=== PATIENT | male | born 1980 | race Caucasian/White ===

== ENCOUNTER 2020-09-25 11:44 | Outpatient (REF) | payer OTHER, SELFPAY | END 2020-09-25 11:45 | disposition home or self-care (01) | LOC: HO.LAB 11:44 | PROVIDERS: Visit Provider Internal Medicine | DX: Z20.828 Contact with and (suspected) exposure to other viral communicable diseases (principal) | CPT/HCPCS: C9803; U0003 ==

== ENCOUNTER 2021-06-16 08:41 | Outpatient (REF) | payer OTHER, SELFPAY ==
[2021-06-16 11:43] LABS: Hematocrit 46.4 % (42-52); Hemoglobin 15.2 g/dl (14.0-18.0); Mean Corpuscular HGB Conc 32.8 g/dl (31.0-36.0); Mean Corpuscular Hemoglobin 28.2 pg (27.0-33.0); Mean Corpuscular Volume 86.1 fL (80-98); Mean Platelet Volume 10.9 fL (9.4-12.4); Platelet Count 262 X10*3/uL (160-400); Red Blood Count 5.39 X10*6/uL (4.60-5.80); Red Cell Distribution Width 13.1 % (11.0-16.0); White Blood Count 7.3 X10*3/uL (4.8-10.8)
[2021-06-16 12:22] LABS: Alanine Aminotransferase 28 U/L (0-40); Albumin Level 4.3 g/dL (3.5-5.0); Alkaline Phosphatase 56 U/L (39-117); Anion Gap 12 (12-20); Aspartate Amino Transferase 19 U/L (5-37); Bilirubin Total 0.3 mg/dL (0.0-1.0); Blood Urea Nitrogen 10 mg/dL (9-16); Calcium 9.3 mg/dL (8.4-10.2); Carbon Dioxide 25 mmol/L (22-29); Chloride 107 mmol/L (96-108); Estimated Glomerular Filt Rate > 60; Glucose Random 95 mg/dL (60-115); Potassium 4.8 mmol/L (3.3-5.1); Sodium 139 mmol/L (135-145); Total Protein 7.5 g/dL (6.5-8.0)
[2021-06-16 13:56] LABS: Band Neutrophils Percent 7 % (3-5); Basophils Abs Manual 0.1 X10*3/uL (0.0-0.3); Basophils Percent Manual 2 % (0-1); Eosinophils Absolute Manual 0.2 X10*3/UL (0.0-0.8); Eosinophils Percent Manual 3 % (0-4); Lymphocytes Absolute Manual 0.9 X10*3/uL (0.6-4.8); Lymphocytes Percent Manual 12 % (20-40); Monocytes Absolute Manual 0.8 X10*3/uL (0.0-1.2); Monocytes Percent Manual 11 % (2-11); Neutrophils Absolute Manual 5.3 X10*3/uL (2.2-7.9); Neutrophils Percent Manual 65 % (45-73)
[2021-06-16 13:57] LABS: Platelet Estimate NORMAL (NORMAL); Platelet Morphology Comment NORMAL; RBC Morphology NORMAL
[2021-06-19 21:26] LABS: TS Negative Control Passed; TS Panel A 0; TS Panel B 0; TS Positive Control Passed; TSpotTB Negative (SeeBelow)
== END 2021-06-16 08:42 | disposition home or self-care (01) ==
LOC: HO.HMGCLDS 08:41
PROVIDERS: PCP Physician Assistant; Visit Provider Physician Assistant Medical
DX: L40.0 Psoriasis vulgaris (principal); Z79.899 Other long term (current) drug therapy
CPT/HCPCS: 36415; 80053; 85007; 85027; 86481

== ENCOUNTER 2021-12-17 09:13 | Outpatient (REF) | payer OTHER, SELFPAY ==
[2021-12-17 11:49] LABS: Hematocrit 50.2 % (42.0-52.0); Hemoglobin 15.8 g/dl (14.0-18.0); Mean Corpuscular HGB Conc 31.5 g/dl (31.0-36.0); Mean Corpuscular Hemoglobin 27.8 pg (27.0-33.0); Mean Corpuscular Volume 88.2 fL (80.0-98.0); Mean Platelet Volume 11.6 fL (9.4-12.4); Platelet Count 307 X10*3/uL (160-400); Red Blood Count 5.69 X10*6/uL (4.60-5.80); White Blood Count 9.7 X10*3/uL (4.8-10.8)
[2021-12-17 12:13] LABS: Alanine Aminotransferase 24 U/L (0-40); Albumin Level 4.3 g/dL (3.5-5.0); Alkaline Phosphatase 53 U/L (39-117); Anion Gap 12 (12-20); Aspartate Amino Transferase 17 U/L (5-37); Bilirubin Total 0.7 mg/dL (0.0-1.0); Blood Urea Nitrogen 13 mg/dL (9-16); Calcium 9.5 mg/dL (8.4-10.2); Carbon Dioxide 27 mmol/L (22-29); Chloride 106 mmol/L (96-108); Estimated Glomerular Filt Rate > 60; Glucose Random 97 mg/dL (60-115); Potassium 4.8 mmol/L (3.3-5.1); Sodium 140 mmol/L (135-145); Total Protein 7.3 g/dL (6.5-8.0)
[2021-12-17 14:10] LABS: Band Neutrophils Percent 2 % (3-5); Eosinophils Absolute Manual 0.1 X10*3/uL (0.0-0.4); Eosinophils Percent Manual 1 % (0-4); Lymphocytes Absolute Manual 1.3 X10*3/uL (1.2-4.9); Lymphocytes Percent Manual 13 % (20-40); Monocytes Absolute Manual 0.8 X10*3/uL (0.1-1.2); Monocytes Percent Manual 8 % (2-11); Neutrophils Absolute Manual 7.6 X10*3/uL (2.0-8.3); Neutrophils Percent Manual 76 % (45-73)
[2021-12-17 14:11] LABS: Platelet Estimate NORMAL (NORMAL); Platelet Morphology Comment NORMAL; RBC Morphology NORMAL
[2021-12-19 12:37] LABS: TS Negative Control Passed; TS Panel A 0; TS Panel B 0; TS Positive Control Passed; TSpotTB Negative (Negative)
== END 2021-12-17 09:14 | disposition home or self-care (01) ==
LOC: HO.HMGCLDS 09:13
PROVIDERS: Visit Provider Physician Assistant Medical
DX: Z11.1 Encounter for screening for respiratory tuberculosis (principal); L40.0 Psoriasis vulgaris; Z79.899 Other long term (current) drug therapy
CPT/HCPCS: 36415; 80053; 85007; 85027; 86481

== ENCOUNTER 2022-12-30 10:31 | Outpatient (REF) | payer OTHER, SELFPAY ==
--- NOTE | ~2022-12-30 | XR_ITS ---
EXAMINATION: XR CERVICAL SPINE XR LUMBAR SPINE XR SHOULDER, RIGHT CLINICAL INFORMATION: Radiculopathy cervical and lumbar regions. Right shoulder pain. COMPARISON: None available. TECHNIQUE: Three-view cervical spine. Three-view lumbar sacral spine. 4 view right shoulder. FINDINGS: CERVICAL SPINE: 3 views of the cervical spine do not demonstrate any evidence of acute fracture. No abnormal prevertebral soft tissue swelling is seen. There is mild narrowing of the C6-C7 disc space. No destructive bony lesions are appreciated. There is minimal spurring at multiple levels. LUMBAR SPINE: 3 views of the lumbar spine demonstrate 5 nonrib-bearing lumbar vertebrae. The bony texture and alignment is satisfactory. No acute fracture, spondylolisthesis, or spondylolysis is appreciated. There is mild narrowing of the L5-S1 disc space. There is some mildly increased density seen about the L5-S1 facet joints which may relate to some degree of facet arthropathy. Pedicles intact. Sacroiliac joints appear unremarkable. RIGHT SHOULDER: Views of the right shoulder do not demonstrate any evidence of acute fracture or dislocation. The glenohumeral joint appears unremarkable. No significant abnormality of the acromioclavicular joint is seen. No widening of the coracoclavicular space is seen. There is calcific tendinitis present. XR/XR shoulder RT min 2V IMPRESSION: Mild degenerative change of the cervical spine. Mild degenerative change, L5-S1 level. Calcific tendinitis of the right shoulder.
--- NOTE | ~2022-12-30 | XR_ITS ---
EXAMINATION: XR CERVICAL SPINE XR LUMBAR SPINE XR SHOULDER, RIGHT CLINICAL INFORMATION: Radiculopathy cervical and lumbar regions. Right shoulder pain. COMPARISON: None available. TECHNIQUE: Three-view cervical spine. Three-view lumbar sacral spine. 4 view right shoulder. FINDINGS: CERVICAL SPINE: 3 views of the cervical spine do not demonstrate any evidence of acute fracture. No abnormal prevertebral soft tissue swelling is seen. There is mild narrowing of the C6-C7 disc space. No destructive bony lesions are appreciated. There is minimal spurring at multiple levels. LUMBAR SPINE: 3 views of the lumbar spine demonstrate 5 nonrib-bearing lumbar vertebrae. The bony texture and alignment is satisfactory. No acute fracture, spondylolisthesis, or spondylolysis is appreciated. There is mild narrowing of the L5-S1 disc space. There is some mildly increased density seen about the L5-S1 facet joints which may relate to some degree of facet arthropathy. Pedicles intact. Sacroiliac joints appear unremarkable. RIGHT SHOULDER: Views of the right shoulder do not demonstrate any evidence of acute fracture or dislocation. The glenohumeral joint appears unremarkable. No significant abnormality of the acromioclavicular joint is seen. No widening of the coracoclavicular space is seen. There is calcific tendinitis present. XR/XR lumbar spine 2-3V IMPRESSION: Mild degenerative change of the cervical spine. Mild degenerative change, L5-S1 level. Calcific tendinitis of the right shoulder.
--- NOTE | ~2022-12-30 | XR_ITS ---
EXAMINATION: XR CERVICAL SPINE XR LUMBAR SPINE XR SHOULDER, RIGHT CLINICAL INFORMATION: Radiculopathy cervical and lumbar regions. Right shoulder pain. COMPARISON: None available. TECHNIQUE: Three-view cervical spine. Three-view lumbar sacral spine. 4 view right shoulder. FINDINGS: CERVICAL SPINE: 3 views of the cervical spine do not demonstrate any evidence of acute fracture. No abnormal prevertebral soft tissue swelling is seen. There is mild narrowing of the C6-C7 disc space. No destructive bony lesions are appreciated. There is minimal spurring at multiple levels. LUMBAR SPINE: 3 views of the lumbar spine demonstrate 5 nonrib-bearing lumbar vertebrae. The bony texture and alignment is satisfactory. No acute fracture, spondylolisthesis, or spondylolysis is appreciated. There is mild narrowing of the L5-S1 disc space. There is some mildly increased density seen about the L5-S1 facet joints which may relate to some degree of facet arthropathy. Pedicles intact. Sacroiliac joints appear unremarkable. RIGHT SHOULDER: Views of the right shoulder do not demonstrate any evidence of acute fracture or dislocation. The glenohumeral joint appears unremarkable. No significant abnormality of the acromioclavicular joint is seen. No widening of the coracoclavicular space is seen. There is calcific tendinitis present. XR/XR cervical spine 3V IMPRESSION: Mild degenerative change of the cervical spine. Mild degenerative change, L5-S1 level. Calcific tendinitis of the right shoulder.
== END 2022-12-30 10:32 | disposition home or self-care (01) ==
LOC: HO.LAB 10:31
PROVIDERS: PCP Physician Assistant; Visit Provider Physician Assistant
DX: M54.12 Radiculopathy, cervical region (principal); M54.16 Radiculopathy, lumbar region; M25.511 Pain in right shoulder
CPT/HCPCS: 72040; 72100; 73030

== ENCOUNTER 2023-01-19 06:59 | Outpatient (REF) | payer OTHER, SELFPAY ==
[2023-01-19 11:41] LABS: Hematocrit 48.7 % (42.0-52.0); Hemoglobin 15.7 g/dl (14.0-18.0); Mean Corpuscular HGB Conc 32.2 g/dl (31.0-36.0); Mean Corpuscular Hemoglobin 27.8 pg (27.0-33.0); Mean Corpuscular Volume 86.3 fL (80.0-98.0); Mean Platelet Volume 11.6 fL (9.4-12.4); Platelet Count 262 X10*3/uL (160-400); Red Blood Count 5.64 X10*6/uL (4.60-5.80); Red Cell Distribution Width 13.4 % (11.0-16.0); White Blood Count 8.4 X10*3/uL (4.8-10.8)
[2023-01-19 12:24] LABS: Alanine Aminotransferase 30 U/L (0-40); Albumin Level 4.1 g/dL (3.5-5.0); Alkaline Phosphatase 61 U/L (39-117); Anion Gap 12 (12-20); Aspartate Amino Transferase 16 U/L (5-37); Bilirubin Total 0.4 mg/dL (0.0-1.0); Blood Urea Nitrogen 7 mg/dL (9-16); Calcium 9.1 mg/dL (8.4-10.2); Carbon Dioxide 25 mmol/L (22-29); Chloride 109 mmol/L (96-108); Cholesterol 238 mg/dL; Estimated Glomerular Filt Rate > 60; Glucose Fasting 104 mg/dL (60-99); HDL Cholesterol 40 mg/dL; LDL Cholesterol Calculated 147 mg/dl; Potassium 4.6 mmol/L (3.3-5.1); Sodium 141 mmol/L (135-145); Total Protein 6.9 g/dL (6.5-8.0); Triglycerides 255 mg/dL
[2023-01-19 12:33] LABS: TSH reflex Free T4 4.21 uIU/mL (0.32-4.0)
[2023-01-19 13:13] LABS: Free T4 (Free Thyroxine) 0.77 ng/dL (0.71-1.85)
[2023-01-21 23:29] LABS: TS Negative Control Passed; TS Panel A 0; TS Panel B 1; TS Positive Control Passed; TSpotTB Negative (Negative)
== END 2023-01-19 07:00 | disposition home or self-care (01) ==
LOC: HO.HMGCLDS 06:59
PROVIDERS: PCP Physician Assistant; Visit Provider Physician Assistant Medical
DX: Z13.1 Encounter for screening for diabetes mellitus (principal); Z13.220 Encounter for screening for lipoid disorders; Z13.29 Encounter for screening for other suspected endocrine disorder; L40.0 Psoriasis vulgaris; Z79.899 Other long term (current) drug therapy
CPT/HCPCS: 36415; 80053; 80061; 84439; 84443; 85027; 86481

== ENCOUNTER 2023-01-20 09:00 | Outpatient (RCR) | payer OTHER, SELFPAY ==
--- NOTE | 2023-01-12 09:46 | MHC.PT.EP ---
[facility] [place] Office [place] [facility] [place] [facility] [address] [phone] F: [phone] F: [phone] F: [phone] F: [phone] Physical Therapy Plan of Care Date of Evaluation: Date of Surgery: Diagnosis: cervical radiculopathy Assessment: Patient is a 42 year old R handed male who presents with s/s consistent with cervical pain, radiculopathy. 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 Patient past medical history is fairly unremarkable. Current impairments include pain, posture, ROM, strength, posture, activity tolerance and functional mobility. Functional limitations include decreased ability to lift, carry, sleep, push, pull and perform activities overhead. Patient is motivated with good rehab potential. Skilled PT will address impairments and functional limitations in order to achieve goals. 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 Manual therapy to restore motion and function. Therapeutic exercise to improve strength and flexibility. Neuromuscular re-education for posture and balance. Therapeutic activities to return to functional activities of daily living. Electronically signed by: Anjum Lan, PT Please sign and return to therapist. Thank you for your referral.
--- NOTE | 2023-03-22 07:40 | MHC.PT.DC ---
[facility] [place] Office [place] Office [place] Office [address] [phone] F: [phone] F: [phone] F: [phone] F: [phone] Physical Therapy Discharge Report Diagnosis: cervical radiculopathy Date of Surgery: Date of Evaluation: 01/12/23 Date of Discharge: 01/26/23 Treatments to Date: 2 Cancellations to Date: No Shows to Date: Discharge Status: Independent with HEP Patient Elected to Stop Discharge Summary: 01/20/23: pt very receptive to work/posture modifications. follows commands and cues well. added scap strength and he is to implement this into HEP and return on 2 weeks. Patient is a 42 year old R handed male who presents with s/s consistent with cervical pain, radiculopathy. 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 Patient past medical history is fairly unremarkable. Current impairments include pain, posture, ROM, strength, posture, activity tolerance and functional mobility. Functional limitations include decreased ability to lift, carry, sleep, push, pull and perform activities overhead. Patient is motivated with good rehab potential. Skilled PT will address impairments and functional limitations in order to achieve goals. Electronically signed by: Anjum Lan, PT Please sign and return to therapist. Thank you for your referral.
== END 2023-03-22 07:41 | disposition home or self-care (01) ==
LOC: HO.PTCHIC 09:00
PROVIDERS: PCP Physician Assistant; Visit Provider Physician Assistant
DX: M54.12 Radiculopathy, cervical region (principal)
CPT/HCPCS: 97110; 97140; 97161

== ENCOUNTER 2023-09-22 08:51 | Outpatient (AMB) | payer OTHER, SELFPAY ==
[2023-09-22 09:10] VITALS: BP 114/78; PULSE 70; RESP 16; BMI 22.8
--- NOTE | 2023-09-22 09:10 | A.OFFPC_ITS ---
Vital Signs 3 09/22/23 09:10 Height 5 ft 7 in Weight 145 lb 8 oz BMI 22.8 BP 114/78 Blood Pressure Location Lt brachial Position Sitting Respiration 16 Pulse 70 Pulse Source Palpation Intake Visit Reasons: PHYSICAL Intake Note: Patient is here today for a physical. 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 Accompanied by: Self / Same As Patient Allergies No Known Allergies Allergy (Verified 09/22/23 09:41) Medication List - Last Reconciled 09/22/23 by Surendra Chirinos PA-C levothyroxine 25 mcg PO DAILY secukinumab mg subcut Q4W Tobacco use date assessed: 12/30/22 Dental Screening Dental Screen Date: 09/22/23 Did you have a dental visit in the last 12 months?: Yes Did you have a dental problem in the last 6 months where you did not have access to dental care?: No Was dental information given to patient?: Patient has dentist HPI PHYSICAL 2 HPI0 Details Valdez is a 43-year-old male here today for an annual physical.? Patient has a past medical history of vitamin-D deficiency, history of alcohol use disorder, GERD, psoriasis. .. concerns--> has a right foot callus and having pain and would like evaluation removal callus. .. Hypothyroidism: Patient continues on levothyroxine 25 mcg. TSH is have been stable. .. History of Polysubstance use disorder: Had a history of alcohol use disorder was sober for 10 years. Still now drinks alcohol from time to time. He does admit to having opiate dependency recently and was able to wean himself off and now is 30 days sober from oral opiates. ? .. ? Psoriasis : Is on Injection therapy with a deratologist and feels it is working really well. ? .. ? GERD: . He reports his GI symptoms have returned, he is interested in restarting PPI therapy as as needed basis per .. ? Vaccine: Declines Flu, up-to-date with COVID vaccine, UTD with Tdap PFSH Medical History (Updated 09/22/23 @ 10:02 by Surendra Chirinos PA-C) Cervical radiculitis Surgical History No pertinent past surgical history Family History Father Diabetes Heart attack Substance use disorder Mother Hypertension Son Allergies Social History (Updated 09/22/23 @ 09:45 by Surendra Chirinos PA-C) Housing: House Alcohol intake: current Alcohol intake frequency: a few times a month Alcohol type: beer and hard liquor Patient Tobacco Use Status: Never used Tobacco e-Cigarette/Vaping Use: Never Used Second Hand Smoke Exposure: No service: No Current occupational status: employed Current occupation: [employer] Current occupational exposures/hazards: No Cognitive needs: No Hearing needs: No Vision needs: No Questionnaire Thrive Questionnaire Date Thrive assessed: 12/30/22 FELICIA-7 AMB Questionnaire FELICIA-7 Date FELICIA - 7 assessed: 12/30/22 Source: Developed by Drs. Nitish Sanches, Shira Cardenas, Alvin Cavazos and colleagues, with an educational wilfredo from [employer]. Review of Systems Const Denies body aches, Denies chills, Denies excessive sweating, Denies fatigue, Denies fever(s) and Denies headache(s) Eyes Denies blurry vision ENT Denies dysphagia, Denies vertigo, Denies dizziness, Denies headache(s), Denies hearing loss and Denies tinnitus Card Denies chest pain, Denies chest pain with activity, Denies syncope, Denies irregular heart rhythm and Denies dyspnea Resp Denies chest congestion, Denies cough, Denies hemoptysis, Denies dyspnea and Denies wheezing GI Denies abdominal pain, Denies melena, Denies hematochezia, Denies coffee ground emesis, Denies dysphagia, Denies diarrhea, Denies nausea and Denies vomiting Denies difficulty urinating, Denies dysuria, Denies urinary frequency, Denies urinary hesitancy and Denies urinary urgency Musc Denies arthralgias, Denies limited range of motion, Denies muscle cramps and Denies muscle weakness Skin/Breast Denies rash and Denies skin ulcer Neuro Denies Abnormal speech present, Denies confusion, Denies vertigo, Denies dizziness, Denies syncope, Denies headache(s), Denies memory loss and Denies seizure-like activity Psych Denies anxiety, Denies confusion, Denies depression, Denies memory loss, Denies panic attacks and Denies paranoia Endo Denies excessive sweating, Denies fatigue, Denies flushing, Denies polydipsia and Denies polyuria Aller/Immun Denies wheezing Physical exam (Primary Care) Vital Signs: Last Vital Signs Pulse 70 09/22/23 09:10 Resp 16 09/22/23 09:10 BP 114/78 09/22/23 09:10 BMI result Body Mass Index 22.8 Tobacco/Smoking Status: Tobacco use Status Tobacco use date assessed 12/30/22 09/22/23 09:14 Patient Tobacco Use Status Never used Tobacco 09/22/23 09:14 e-Cigarette/Vaping Use Never Used 09/22/23 09:14 Thrive Assessment: Date of Thrive Assessment Date Thrive assessed 12/30/22 09/22/23 09:14 Const General: cooperative, comfortable, no acute distress, alert and awake; No confusion Orientation/consciousness: oriented to person, oriented to place, patient oriented x3 and No confusion HENMT Head: Yes normocephalic Ears: external ears normal and TM's normal bilaterally Face and sinus: No sinus tenderness Mouth: Normal oral and palatal mucosa present and tongue normal Teeth and gingiva: dentition normal and gingiva normal Throat: Yes posterior oropharynx normal, Yes tonsils normal and Yes uvula midline Eyes Conjunctivae: conjunctivae normal Sclerae: sclerae normal Pupils: Equal, round and reactive pupils present EOM: EOMs intact bilaterally Direct Ophthalmoscopy: No no photophobia Neck Neck: Yes no lymphadenopathy, No tender and Yes no JVD Thyroid: Thyroid normal Carotids: no bruits Chest Chest palpation & inspection: no tenderness Resp Effort & Inspection: normal respiratory effort, no audible wheezes, not labored and no stridor Auscultation: no crackles, no rales, no rhonchi and no wheezes Cardio Jugular venous distension: no JVD Rate: regular rate, not bradycardic and not tachycardic Rhythm: regular rhythm Bruits: no carotid bruits Peripheral pulses: Peripheral pulses 2+ throughout GI Inspection: Yes normal to inspection, No abdominal wall ecchymosis and No visible herniation Palpation (GI): Soft to palpation, nontender, no guarding, not rigid and No hepatosplenomegaly present Auscultation: normoactive bowel sounds General: Yes no CVA tenderness Back/Spine/Pelvis Back: no CVA tenderness and No back tenderness Cervical Spine: cervical ROM normal Thoracic/Lumbar Spine: thoracic and lumbar spine normal to inspection, straight leg raise negative bilaterally, No thoraco-lumbar ROM limited and No lumbar spinal tenderness Skin Lesions: no lesions Rashes: no rashes Wounds: no wounds Neuro General: oriented to person, oriented to place, patient oriented x3, CN's II-XI intact bilaterally and No confusion Cranial nerves: Yes Equal, round and reactive pupils present and Yes Normal accommodation reflex present Cognition (Neuro): normal cognition Speech: No Abnormal speech present Gait exam (Neuro): Normal gait present Motor exam (neuro): 5/5 motor strength present throughout Extrem Right upper extremity: full ROM; no cyanosis Left upper extremity: full ROM; no cyanosis Right lower extremity: no edema Left lower extremity: no edema Ankle/foot/toe images: 2 1. 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 He reports these injections worked well for his psoriasis. (3) Screening for diabetes mellitus (DM): Code(s): Z13.1 - Encounter for screening for diabetes mellitus (4) Opiate dependence: Code(s): F11.20 - Opioid dependence, uncomplicated Qualifiers: Substance use status: in remission Qualified Code(s): F11.21 - Opioid dependence, in remission Plan: Reports she recently got addicted to opiate pills. He was able to get himself off going through withdrawal at home. Not on any Suboxone methadone at this time. (5) [place] of foot: Code(s): L84 - Corns and callosities Plan: He has developed a callus over his right plantar region. He reports does cause him pain and would like it removed. Will refer to Podiatry for evaluation and removal of this gas. (6) GERD (gastroesophageal reflux disease): Code(s): K21.9 - Gastro-esophageal reflux disease without esophagitis Qualifiers: Esophagitis presence: without esophagitis Qualified Code(s): K21.9 - Gastro-esophageal reflux disease without esophagitis Plan: He will restart PPI therapy an as-needed basis. Again advised on reducing gastric irritant foods in his diet. Orders: Orders 2 TSH reflex Free T4 Today E03.9 - Hypothyroidism, unspecified Comprehensive [place]. Panel Fast Today Z13.1 - Encounter for screening for diabetes mellitus Complete Blood Count no Diff Today Z13.1 - Encounter for screening for diabetes mellitus Referrals 2 Podiatry Referral L84 - Corns and callosities Medications: New 2 omeprazole 20 mg PO DAILY 30 days 30 caps 1RF K21.9 - Gastro-esophageal reflux disease without esophagitis Coding Level of Care Code Est Pt Prev Care 40-64y([id number]) Diagnoses Annual physical exam Z00.00 Psoriasis L40.9 Screening for diabetes mellitus (DM) Z13.1 Opioid dependence in remission F11.21 Substance use status: in remission [place] of foot L84 Gastroesophageal reflux disease without esophagitis K21.9 Esophagitis presence: without esophagitis
== END 2023-09-22 10:02 | disposition home or self-care (01) ==
PROVIDERS: Visit Provider Physician Assistant
DX: Z00.00 Encounter for general adult medical examination without abnormal findings (principal); L40.9 Psoriasis, unspecified; Z13.1 Encounter for screening for diabetes mellitus; F11.21 Opioid dependence, in remission; L84 Corns and callosities; K21.9 Gastro-esophageal reflux disease without esophagitis
CPT/HCPCS: 99396

== ENCOUNTER 2024-01-23 09:38 | Outpatient (REF) | payer OTHER, SELFPAY ==
[2024-01-23 10:40] LABS: Hematocrit 47.5 % (42.0-52.0); Hemoglobin 15.8 g/dl (14.0-18.0); Mean Corpuscular HGB Conc 33.3 g/dl (31.0-36.0); Mean Corpuscular Volume 84.2 fL (80.0-98.0); Mean Platelet Volume 10.8 fL (9.4-12.4); Platelet Count 293 X10*3/uL (160-400); Red Blood Count 5.64 X10*6/uL (4.60-5.80); Red Cell Distribution Width 12.9 % (11.0-16.0); White Blood Count 6.1 X10*3/uL (4.8-10.8)
[2024-01-23 12:12] LABS: Alanine Aminotransferase 25 U/L (0-40); Albumin Level 4.3 g/dL (3.5-5.0); Alkaline Phosphatase 57 U/L (39-117); Anion Gap 11 (12-20); Aspartate Amino Transferase 17 U/L (5-37); Bilirubin Total 0.4 mg/dL (0.0-1.0); Blood Urea Nitrogen 10 mg/dL (9-16); Calcium 9.4 mg/dL (8.4-10.2); Carbon Dioxide 25 mmol/L (22-29); Chloride 109 mmol/L (96-108); Estimated Glomerular Filt Rate > 60; Glucose Fasting 105 mg/dL (60-99); Potassium 4.1 mmol/L (3.3-5.1); Sodium 141 mmol/L (135-145); TSH reflex Free T4 2.07 uIU/mL (0.32-4.0); Total Protein 7.4 g/dL (6.5-8.0)
== END 2024-01-23 09:39 | disposition home or self-care (01) ==
LOC: HO.HMGCLDS 09:38
PROVIDERS: PCP Physician Assistant; Referring Provider Physician Assistant Medical; Visit Provider Physician Assistant
DX: Z13.1 Encounter for screening for diabetes mellitus (principal); E03.9 Hypothyroidism, unspecified; L40.0 Psoriasis vulgaris; Z79.899 Other long term (current) drug therapy
CPT/HCPCS: 36415; 80053; 84443; 85027

== ENCOUNTER 2024-01-26 07:07 | Outpatient (REF) | payer OTHER, SELFPAY ==
[2024-01-29 13:03] LABS: TS Negative Control Passed; TS Panel A 0; TS Panel B 0; TS Positive Control Passed; TSpotTB Negative (Negative)
== END 2024-01-26 07:08 | disposition home or self-care (01) ==
LOC: HO.HMGCLDS 07:07
PROVIDERS: PCP Physician Assistant; Visit Provider Physician Assistant Medical
DX: L40.0 Psoriasis vulgaris (principal); Z79.899 Other long term (current) drug therapy
CPT/HCPCS: 36415; 86481

== ENCOUNTER 2024-09-24 08:58 | Outpatient (AMB) | payer OTHER, SELFPAY ==
--- NOTE | 2024-09-24 09:01 | MHC.PC.OV ---
Vital Signs 09/24/24 09:02 Height 5 ft 7 in Weight 148 lb 6 oz BMI 23.2 BP 110/80 Blood Pressure Location Lt brachial Position Sitting Pulse 60 Pulse Source Pulse Oximeter Pulse Oximetry (%) 97 Oxygen Delivery Method Room Air Intake Visit Reasons: Annual Exam Child Support Agent Required: No Accompanied by: Self / Same As Patient Allergies No Known Allergies Allergy (Verified 09/24/24 09:20) Medication List - Last Reconciled 09/24/24 by Surendra Chirinos PA-C levothyroxine 25 mcg PO DAILY omeprazole 20 mg PO DAILY 30 days secukinumab mg subcut Q4W Tobacco use date assessed: 09/24/24 Dental Screening Dental Screen Date: 09/24/24 Did you have a dental visit in the last 12 months?: Yes Did you have a dental problem in the last 6 months where you did not have access to dental care?: No Was dental information given to patient?: Patient has dentist HPI Annual Exam HPI Details Valdez is a 44-year-old male here today for an annual physical.? Patient has a past medical history of vitamin-D deficiency, history of alcohol use disorder, GERD, psoriasis. .. No concerns today. .. Hypothyroidism: Patient continues on levothyroxine 25 mcg. TSH is have been stable. .. History of Polysubstance use disorder: Had a history of alcohol use disorder was sober for 1 year. Still now drinks alcohol from time to time. He does admit to having opiate dependency recently and was able to wean himself off last year. ? .. ? Psoriasis : Is on Injection therapy with a deratologist and feels it is working really well. ? .. ? GERD: . He reports his GI symptoms have returned, he is interested in restarting PPI therapy as as needed basis per .. ? Vaccine: Declines Flu, up-to-date with COVID vaccine, UTD with Tdap [facility] Medical History (Updated 09/24/24 @ 09:36 by Surendra Chirinos PA-C) Cervical radiculitis Surgical History No pertinent past surgical history Family History Father Diabetes Heart attack Substance use disorder Mother Hypertension Son Allergies Social History (Updated 09/24/24 @ 09:24 by Surendra Chirinos PA-C) Housing: House Alcohol intake: former Year quit: 2022 Patient Tobacco Use Status: Never used Tobacco e-Cigarette/Vaping Use: Never Used Second Hand Smoke Exposure: No service: No Current occupational status: employed Current occupation: [employer] Current occupational exposures/hazards: No Cognitive needs: No Hearing needs: No Vision needs: No Questionnaire PHQ-9 Over the last 2 weeks, how often have you been bothered by any of the following problems? 1. Little interest or pleasure in doing things: not at all 2. Feeling down, depressed, or hopeless: not at all 3. Trouble falling or staying asleep, or sleeping too much: not at all 4. Feeling tired or having little energy: not at all 5. Poor appetite or overeating: not at all 6. Feeling bad about yourself - or that you are a failure or have let yourself or your family down: not at all 7. Trouble concentrating on things, such as reading the newspaper or watching television: not at all 8. Moving or speaking so slowly that other people could have noticed. Or the opposite - being so fidgety or restless that you have been moving around a lot more than usual: not at all 9. Thoughts that you would be better off or of hurting yourself in some way: not at all Total score: 0 Depression Screening Interpretation: Negative Depression Screening Done: Yes 37641 - PHQ-9 Billing: Yes Source: Developed by Drs. Nitish Sanches, Shira Cardenas, Alvin Cavazos and colleagues, with an educational wilfredo from [employer]. Thrive Questionnaire Date Thrive assessed: 09/24/24 I am a: Patient What is your living situation today?: I have a steady place to live Within the past 12 months, did the food you bought not last and you didn't have the money to get more?: I choose not to answer this question Within the past 12 months, did you worry whether your food would run out before you got money to buy more?: I choose not to answer this question Do you have trouble paying for medicines?: No Do you have trouble getting transportation to medical appointments?: No Do you have trouble paying your heating and electricity bill?: No Do you have trouble taking care of your child, family member or friend?: No Do you have trouble with day-to-day activities such as bathing, preparing meals, shopping, managing finances, etc.?: No Are you currently unemployed and looking for a job?: No Are you interested in more education?: No Please select the resources that you would like help with: None Currently or been in a relationship where the following occur: I choose not to answer THRIVE Score: 0 AUDIT C Alcohol Use Questionnaire (AUDIT-C) 1. How often do you have a drink containing alcohol?: Never Total Score: 0 FELICIA-7 AMB Questionnaire FELICIA-7 Date FELICIA - 7 assessed: 09/24/24 Feeling nervous, anxious, or on edge: 0 = Not at all Not being able to stop or control worryin = Not at all Worrying too much about different things: 0 = Not at all Trouble relaxin = Not at all Being so restless that it is hard to sit still: 0 = Not at all Becoming easily annoyed or irritable: 0 = Not at all Feeling afraid as if something awful might happen: 0 = Not at all Total FELICIA-7 score (0-4 normal; 5-9 mild; 10-14 moderate; 15-21 severe): 0 Source: Developed by Drs. Nitish Sanches, Shira Cardenas, Alvin Cavazos and colleagues, with an educational wilfredo from [employer]. FELICIA-7 Assessment Billing FELICIA-7 Assessment Tool: FELICIA-7 Assessment 92076 Review of Systems Const Denies body aches, Denies chills, Denies excessive sweating, Denies fatigue, Denies fever(s) and Denies headache(s) Eyes Denies blurry vision ENT Denies dysphagia, Denies vertigo, Denies dizziness, Denies headache(s), Denies hearing loss and Denies tinnitus Card Denies chest pain, Denies chest pain with activity, Denies syncope, Denies irregular heart rhythm and Denies dyspnea Resp Denies chest congestion, Denies cough, Denies hemoptysis, Denies dyspnea and Denies wheezing GI Denies abdominal pain, Denies melena, Denies hematochezia, Denies coffee ground emesis, Denies dysphagia, Denies diarrhea, Denies nausea and Denies vomiting Denies difficulty urinating, Denies dysuria, Denies urinary frequency, Denies urinary hesitancy and Denies urinary urgency Musc Denies arthralgias, Denies limited range of motion, Denies muscle cramps and Denies muscle weakness Skin/Breast Denies rash and Denies skin ulcer Neuro Denies Abnormal speech present, Denies confusion, Denies vertigo, Denies dizziness, Denies syncope, Denies headache(s), Denies memory loss and Denies seizure-like activity Psych Denies anxiety, Denies confusion, Denies depression, Denies memory loss, Denies panic attacks and Denies paranoia Endo Denies excessive sweating, Denies fatigue, Denies flushing, Denies polydipsia and Denies polyuria Aller/Immun Denies wheezing Physical exam (Primary Care) Vital Signs: Last Vital Signs Pulse 60 09/24/24 09:02 BP 110/80 09/24/24 09:02 Pulse Ox 97 09/24/24 09:02 Oxygen Delivery Method Room Air 09/24/24 09:02 BMI result Body Mass Index 23.2 Tobacco/Smoking Status: Tobacco use Status Tobacco use date assessed 09/24/24 09/24/24 09:06 Patient Tobacco Use Status Never used Tobacco 09/24/24 09:06 e-Cigarette/Vaping Use Never Used 09/24/24 09:06 PHQ-9: PHQ-9 Score PHQ-9: Total score 0 09/24/24 09:06 Depression Screening Interpretation: Negative Thrive Assessment: Date of Thrive Assessment Date Thrive assessed 09/24/24 09/24/24 09:06 Currently or been in a relationship where the following occur: I choose not to answer Const General: cooperative, comfortable, no acute distress, alert and awake; No confusion Orientation/consciousness: oriented to person, oriented to place, patient oriented x3 and No confusion HENMT Head: Yes normocephalic Ears: external ears normal and TM's normal bilaterally Face and sinus: No sinus tenderness Mouth: Normal oral and palatal mucosa present and tongue normal Teeth and gingiva: dentition normal and gingiva normal Throat: Yes posterior oropharynx normal, Yes tonsils normal and Yes uvula midline Eyes Conjunctivae: conjunctivae normal Sclerae: sclerae normal Pupils: Equal, round and reactive pupils present EOM: EOMs intact bilaterally Direct Ophthalmoscopy: No no photophobia Neck Neck: Yes no lymphadenopathy, No tender and Yes no JVD Thyroid: Thyroid normal Carotids: no bruits Chest Chest palpation & inspection: no tenderness Resp Effort & Inspection: normal respiratory effort, no audible wheezes, not labored and no stridor Auscultation: no crackles, no rales, no rhonchi and no wheezes Cardio Jugular venous distension: no JVD Rate: regular rate, not bradycardic and not tachycardic Rhythm: regular rhythm Bruits: no carotid bruits Peripheral pulses: Peripheral pulses 2+ throughout GI Inspection: Yes normal to inspection, No abdominal wall ecchymosis and No visible herniation Palpation (GI): Soft to palpation, nontender, no guarding, not rigid and No hepatosplenomegaly present Auscultation: normoactive bowel sounds General: Yes no CVA tenderness Back/Spine/Pelvis Back: no CVA tenderness and No back tenderness Cervical Spine: cervical ROM normal Thoracic/Lumbar Spine: thoracic and lumbar spine normal to inspection, straight leg raise negative bilaterally, No thoraco-lumbar ROM limited and No lumbar spinal tenderness Skin Lesions: no lesions Rashes: no rashes Wounds: no wounds Neuro General: oriented to person, oriented to place, patient oriented x3, CN's II-XI intact bilaterally and No confusion Cranial nerves: Yes Equal, round and reactive pupils present and Yes Normal accommodation reflex present Cognition (Neuro): normal cognition Speech: No Abnormal speech present Gait exam (Neuro): Normal gait present Motor exam (neuro): 5/5 motor strength present throughout Extrem Right upper extremity: full ROM; no cyanosis Left upper extremity: full ROM; no cyanosis Right lower extremity: no edema Left lower extremity: no edema Psych Appearance: grossly normal Mental Status: mental status grossly normal Affect: normal affect Attitude: cooperative Thought process: Normal thought process present Coding Level of Care Code Est Pt Prev Care 40-64y(71603) Diagnoses Annual physical exam Z00.00 Psoriasis L40.9 Opioid dependence in remission F11.21 Substance use status: in remission Gastroesophageal reflux disease without esophagitis K21.9 Esophagitis presence: without esophagitis Screening for diabetes mellitus (DM) Z13.1 Hypothyroidism, unspecified type E03.9 Hypothyroidism type: unspecified History of alcohol use disorder Z87.898 Additional Codes PHQ-9 - 80228 - PHQ-9 Billing: Yes ([id number]) FELICIA-7 Assessment Billing - FELICIA-7 Assessment Tool: FELICIA-7 Assessment 41372 ([id number]) Assessment & Plan Assessment & Plan (1) Annual physical exam: Code(s): Z00.00 - Encounter for general adult medical examination without abnormal findings Category: Medical Plan: As per HPI (2) Psoriasis: Code(s): L40.9 - Psoriasis, unspecified Category: Medical Plan: Patient continues to follow Dermatology. Takes an injection once per month which has offered him wonderful relief of his psoriasis skin manifestations. (3) Opiate dependence: Code(s): F11.20 - Opioid dependence, uncomplicated Category: Medical Qualifiers: Substance use status: in remission Qualified Code(s): F11.21 - Opioid dependence, in remission Plan: Has resolved without the use of medication. (4) GERD (gastroesophageal reflux disease): Code(s): K21.9 - Gastro-esophageal reflux disease without esophagitis Category: Medical Qualifiers: Esophagitis presence: without esophagitis Qualified Code(s): K21.9 - Gastro-esophageal reflux disease without esophagitis Plan: Continues to use omeprazole on a as needed basis with good effect on his GERD symptoms. (5) Screening for diabetes mellitus (DM): Code(s): Z13.1 - Encounter for screening for diabetes mellitus Category: Medical Plan: As per HPI (6) Hypothyroidism: Code(s): E03.9 - Hypothyroidism, unspecified Category: Medical Qualifiers: Hypothyroidism type: unspecified Qualified Code(s): E03.9 - Hypothyroidism, unspecified Plan: Most recent TSH has been stable. Continues with levothyroxine 25 mcg done daily basis. Will continue to follow TSH to assure normal (7) History of alcohol use disorder: Code(s): Z87.898 - Personal history of other specified conditions Category: Medical Plan: He is now over a year sober from alcohol. He reports he feels great. Continues to have a good mind set about being sober. Did not use any 12 step program. Orders: Orders Comprehensive [place]. Panel Fast Today Z13.1 - Encounter for screening for diabetes mellitus TSH reflex Free T4 Today E03.9 - Hypothyroidism, unspecified
[2024-09-24 09:02] VITALS: BP 110/80; PULSE 60; O2SAT 97; BMI 23.2
--- OUTSIDE RECORDS SUMMARY | 2024-09-24 09:07 | XMS_ITS | Data Portability ---
Author Organization [facility], [address] Address [address] [place] [address] Care Team Providers Care Seismograph Helper Name Role Phone [facility] Primary Care Provider [phone] Assessment No assessment recorded. Plan of Treatment Reminders Order Date Submit Date Provider Last Modified By Organization Details Last Modified Time Details Appointments None recorded. Lab None recorded. Referral None recorded. Procedures None recorded. Surgeries None recorded. Imaging None recorded. Medication Orders ketorolac 60 mg/2 mL intramuscul ar solution 2022 023 [email or web address] [facility]/Pharmacy #[id number], [address] [place] [address], [phone], 14:49:43 diclofenac sodium 75 mg tablet,mauricio yed release 2022 023 [facility]/Pharmacy #2339, [address] [place] [address], [phone], 14:46:26 cyclobenzap rine 10 mg tablet 2022 023 [facility]/Pharmacy #2339, [address] [place] [address], [phone], 14:46:26 Patient TargetsNo targets recorded. Patient Instructions Encounter Date Encounter Id Patient Instructions Last Modified By Organization Details Last Modified Time 12/09/2022 [id number] getting back to normal after low back pain: care instructions [id number] Not available 12/09/2022 14:46:06 Reason for Referral None Reported. Problems Name Problem SNOMED Code Status Onset Date Resolution Date Notes Provider Name and Address Organization Details Recorded Time Psoriasis 0704763 Active 023 AMANDA daugherty PA - [facility] 12/09/2022 13:06:41 Problem Notes None recorded. Procedures Surgical History Date Name Laterality Status Provider Name and Address Organization Details Recorded Time procedure on elbow completed AMANDA GARRETT - [facility] 12/09/2022 13:07:04 Imaging Results None recorded. Procedure Notes None recorded. Medical Equipment None Reported. Allergies No known drug allergies Medications Name Sig Start Date Stop Date Status Note LastModified by Organization Details LastModified Time cyclobenzap rine 10 mg tablet Take 1 tablet 3 times a day by oral route for 10 days. 2022 active Not Available Not Available Not Avai lable clobetasol 0.05 % topical cream APPLY DAILY TO AFFECTED AREAS ON SCALP FOR 3 WEEKS, THEN BREAK 1 WEEK AND REPEAT 12/09 completed Not Available Not Available Not Available diclofenac sodium 75 mg tablet,mauricio yed release Take 1 tablet twice a day by oral route for 15 days. 2022 active Not Available Not Available Not Avai lable ketorolac 60 mg/2 mL intramuscul ar solution Inject 2 mL by intramusc ular route. 2022 active Not Available Not Available Not Avai lable hydrocortis one 2.5 % topical ointment PLEASE SEE ATTACHED FOR DETAILED DIRECTION S active Not Available Not Available No t Available Cosentyx Pen 300 mg/2 Pens (150 mg/mL) subcutaneou s active Not Available Not Available Not Available Vitals Date Recorded Body height Body mass index (BMI) Body weight Oxygen saturation Oxygen saturation in Arterial blood by Pulse oximetry Heart rate Respiratory rate Body temperature Systolic blood pressure Diastolic blood pressure Provider Name and Address Organization Details Last Updated DateTime 3 170.18 cm 23.5 kg/m2 35166.8 6 g 99 % 99 % 59 /min 19 /min 97.3 [degF] 132 mm[Hg] 78 mm[Hg] AMANDA Nicole [facility] 3 13:08:25 Social History Question Answer Notes LastModified by Organizat ion Details LastModified Time Tobacco Smoking Status Never Smoker AMANDA daugherty PA - [facility] 12/09/2022 13:06:53 What Is Your Level Of Alcohol Consumption? None Information not available 12/09/2022 Do You Use Any Illicit Or Recreational Drugs? No Information not available 12/09/2022 Have You Recently Traveled Abroad? No Information not available 12/09/2022 Do You Or Have You Ever Used Any Other Forms Of Tobacco Or Nicotine? No Information not available 12/09/2022 Sex: Unknown Functional Status None recorded. Mental Status None recorded. Family History Nothing Reported. Medical History No medical history recorded. Immunizations Vaccine Type Date Status Note Provider Nam e and Address Organization Details Recorded Time COVID-19, mRNA, LNP-S, PF, 100 mcg/0.5mL dose or 50 mcg/0.25mL dose 10/14/2021 completed AMANDA CHENGO null, PA - [facility] 12/09/2022 13:06:10 COVID-19, mRNA, LNP-S, PF, 100 mcg/0.5mL dose or 50 mcg/0.25mL dose 09/16/2021 completed AMANDA CHENGO null, PA - [facility] 12/09/2022 13:06:10 Tdap 10/10/2014 completed AMANDAMiguelangel daugherty, PA - [facility] 12/09/2022 13:06:10 Past Encounters Encounter ID Performer Location Encounter Start Date Encounter Closed Date Diagnosis/Indication Diagnosis SNOMED-CT Code Diagnosis ICD10 Code [id number] [address] [place] [address] 05/05/2016 16:32:21 05/05/2016 17:34:53 [id number] [address] [place] [address] 10/22/2017 12:01:29 10/22/2017 13:35:06 [id number] FRANDY GALVAN MD [address] [place] [address] 12/09/2022 10:01:10 12/09/2022 14:54:21 Spasm of muscle of lower back 0890355911 [id number] M62.830 Health Concerns Section Related Observation LastModified by Organization [facility] LastModified Time None Recorded Concern Status LastModified by Organization Details LastModified Time None Recorded Advance Directives Directive None Recorded Payers Encounter Date Sequence Insurance Name Policy Number Policy Hawkins Covered Member ID Hawkins Member ID Guarantor Name 10/22/2017 1 [facility] [id number] Valdez Ball [id number] Valdez Ball 12/09/2022 1 [facility] [id number] Valdez Ball [id number] Valdez Ball
== END 2024-09-24 09:32 | disposition home or self-care (01) ==
PROVIDERS: PCP Physician Assistant; Visit Provider Physician Assistant
DX: Z00.00 Encounter for general adult medical examination without abnormal findings (principal); L40.9 Psoriasis, unspecified; F11.21 Opioid dependence, in remission; K21.9 Gastro-esophageal reflux disease without esophagitis; Z13.1 Encounter for screening for diabetes mellitus; E03.9 Hypothyroidism, unspecified; Z87.898 Personal history of other specified conditions

== ENCOUNTER → 2024-09-24 08:58 | Outpatient (BNVA) | payer OTHER, SELFPAY | PROVIDERS: PCP Physician Assistant; Visit Provider Physician Assistant | DX: Z00.00 Encounter for general adult medical examination without abnormal findings (principal); L40.9 Psoriasis, unspecified; K21.9 Gastro-esophageal reflux disease without esophagitis; E03.9 Hypothyroidism, unspecified; F11.21 Opioid dependence, in remission; Z79.899 Other long term (current) drug therapy; Z87.898 Personal history of other specified conditions | CPT/HCPCS: 96127 ==

== ENCOUNTER 2025-02-15 07:16 | Outpatient (REF) | payer OTHER, SELFPAY ==
--- OUTSIDE RECORDS SUMMARY | 2025-02-15 07:19 | XMS_ITS | Data Portability ---
Author Organization [facility], [address] Address [address] [place] [address] Care Team Providers Care Social Sciences Professor Name Role Phone [facility] Primary Care Provider [phone] Assessment No assessment recorded. Plan of Treatment Reminders Order Date Submit Date Provider Last Modified By Organization Details Last Modified Time Details Appointments None recorded. Lab None recorded. Referral None recorded. Procedures None recorded. Surgeries None recorded. Imaging None recorded. Medication Orders ketorolac 60 mg/2 mL intramuscul ar solution [email or web address] [facility]/Pharmacy #2339, [address] [place] [address], [id number], 14:49:43 diclofenac sodium 75 mg tablet,mauricio yed release 2022 023 [facility]/Pharmacy #2339, [address] [place] [address], [phone], 14:46:26 cyclobenzap rine 10 mg tablet 2022 023 [facility]/Pharmacy #2339, [address] [place] [address], [id number], 14:46:26 Patient TargetsNo targets recorded. Patient Instructions Encounter Date Encounter Id Patient Instructions Last Modified By Organization Details Last Modified Time 12/09/2022 [id number] getting back to normal after low back pain: care instructions [id number] Not available 12/09/2022 14:46:06 Reason for Referral None Reported. Problems Name Problem SNOMED Code Status Onset Date Resolution Date Notes Provider Name and Address Organization Details Recorded Time Psoriasis 5680650 Active 023 AMANDA daugherty PA - [facility] 12/09/2022 13:06:41 Problem Notes None recorded. Procedures Surgical History Date Name Laterality Status Provider Name and Address Organization Details Recorded Time procedure on elbow completed AMANDA ALANIZ PA - [facility] 12/09/2022 13:07:04 Imaging Results [...] No t Available Cosentyx Pen 300 mg/2 pens (150 mg/mL) subcutaneou s pen injector active Not Available Not Available Not Available Vitals Date Recorded Body height Body mass index (BMI) Body weight Pain severity - 0-10 verbal numeric rating [Score] - Reported Oxygen saturation Oxygen saturation in Arterial blood by Pulse oximetry Heart rate Respiratory rate Body temperature Systolic blood pressure Diastolic blood pressure Provider Name and Address Organization Details Last Updated DateTime 3 170.18 cm 23.5 kg/m2 16835.8 6 g 5 99 % 99 % 59 /min 19 /min 97.3 [degF] 132 mm[Hg] 78 mm[Hg] AMANDA ALANIZ PA - [facility] 3 13:08:25 Social History Question Answer Notes LastModified by Organizat ion Details LastModified Time Tobacco Smoking Status Never Smoker AMANDA daugherty, PA - [facility] 12/09/2022 13:06:53 What [...] or 50 mcg/0.25mL dose 10/14/2021 completed AMANDA EDENINTO null, PA - [facility] 12/09/2022 13:06:10 COVID-19, mRNA, LNP-S, PF, 100 mcg/0.5mL dose or 50 mcg/0.25mL dose 09/16/2021 completed AMANDA DEPINTO null, PA - [facility] 12/09/2022 13:06:10 Tdap 10/10/2014 completed AMANDA DEPINTO null, PA - [facility] 12/09/2022 13:06:10 Past Encounters Encounter ID Performer Location Encounter Start Date Encounter Closed Date Diagnosis/Indication Diagnosis SNOMED-CT Code Diagnosis ICD10 Code Diagnosis Note [id number] [address] [place] [address] 05/05/2016 16:32:21 05/05/2016 17:34:53 [id number] [address] [place] [address] 10/22/2017 12:01:29 10/22/2017 13:35:06 [id number] FRANDY GALVAN MD [address] [place] [address] 12/09/2022 10:01:10 12/09/2022 14:54:21 Spasm of muscle of lower back [id number] 1602852 M62.830 MUSCULOSKE LETAL PAIN can be managed quite effectivel y with over the counter medication s and home treatments . When suffering from sprains, strains, contusions and other types of very painful but non-danger ous musculoske letal pain try the following: ???1. ACETAMINOP HEN 1,000 mg or 6 hours is needed for pain while taking the Diclofenac .???2. Heat - Apply moist heat to affected area 3 times a day for 20 minutes at a time. Do not sleep with a heating pad as it may cause skin lerma.???3 . Topical medication such as Stop Pain Roll-On fe els good to rub on painful areas. Do not apply over broken skin.???4. Many musculoske letal injuries can benefit from gentle stretching or strengthen ing exercises. 5. Wear a back support brace while working to take the strain of of you back.??? *If pain does not improve please see your doctor or return to [facility] within one week. If your symptoms become severe or uncontroll ed or if you develop new concerning symptoms please go to the Emergency Department for evaluation and pain control. Health Concerns Section Related Observation LastModified by Organization [facility] LastModified Time None Recorded Concern Status LastModified by Organization Details LastModified Time None Recorded Advance Directives Directive None Recorded Payers Insurance Date Sequence Insurance Name Policy Number Policy Hawkins Covered Member ID Hawkins Member ID Guarantor Name 03/03/[address] [place] [address] [id number] Valdez Ball [id number] Valdez Ball
[2025-02-18 17:58] LABS: TS Negative Control Passed; TS Panel A 0; TS Panel B 0; TS Positive Control Passed; TSpotTB Negative (Negative)
== END 2025-02-15 07:17 | disposition home or self-care (01) ==
LOC: HO.HMGCLDS 07:16
PROVIDERS: PCP Physician Assistant; Referring Provider Physician Assistant Medical; Visit Provider Physician Assistant
DX: L40.0 Psoriasis vulgaris (principal)
CPT/HCPCS: 36415; 86481

== ENCOUNTER 2025-02-27 11:21 | Outpatient (AMB) | payer OTHER, SELFPAY ==
--- NOTE | 2025-02-27 11:38 | MHC.PC.OV ---
Vital Signs 02/27/25 11:43 Height 5 ft 7 in Weight 145 lb 8 oz BMI 22.8 BP 110/72 Blood Pressure Location Lt brachial Position Sitting Pulse 70 Pulse Source Pulse Oximeter Temp 97.3 F Temp Source Temporal Artery Scan Pulse Oximetry (%) 98 Oxygen Delivery Method Room Air Intake Visit Reasons: Lump Trial Management Associate Required: No Accompanied by: Self / Same As Patient Allergies No Known Allergies Allergy (Verified 02/27/25 11:38) Tobacco use date assessed: 09/24/24 Dental Screening Dental Screen Date: 09/24/24 HPI Lump HPI Details The patient is a 44-year-old male presenting with a concern of a lump in the abdominal area. He describes the lump as painless and located near his abdomen. The patient attributes this condition potentially to his increased weight-lifting activities over the past year and a half, noting that he has recently been lifting heavier weights. He experiences no pain but has been advised for a CT scan to evaluate for a possible fat-containing hernia. The patient has a history of hypothyroidism currently managed with medication, adjusting the timing of medication intake to alleviate prior fatigue. He maintains good hydration and acknowledges taking substantial water daily without any alteration in bowel or urinary habits. Recent lab results show a fasting blood glucose of 105, suggesting dietary changes are necessary. [facility] Medical History (Updated 02/27/25 @ 12:24 by Surendra Chirinos PA-C) Cervical radiculitis Surgical History No pertinent past surgical history Family History Father Diabetes Heart attack Substance use disorder Mother Hypertension Son Allergies Social History Housing: House Alcohol intake: former Year quit: 2022 Patient Tobacco Use Status: Never used Tobacco e-Cigarette/Vaping Use: Never Used Second Hand Smoke Exposure: No service: No Current occupational status: employed Current occupation: [employer] Current occupational exposures/hazards: No Cognitive needs: No Hearing needs: No Vision needs: No Questionnaire PHQ-9 Over the last 2 weeks, how often have you been bothered by any of the following problems? 1. Little interest or pleasure in doing things: not at all 2. Feeling down, depressed, or hopeless: not at all 3. Trouble falling or staying asleep, or sleeping too much: not at all 4. Feeling tired or having little energy: not at all 5. Poor appetite or overeating: not at all 6. Feeling bad about yourself - or that you are a failure or have let yourself or your family down: not at all 7. Trouble concentrating on things, such as reading the newspaper or watching television: not at all 8. Moving or speaking so slowly that other people could have noticed. Or the opposite - being so fidgety or restless that you have been moving around a lot more than usual: not at all 9. Thoughts that you would be better off or of hurting yourself in some way: not at all Total score: 0 Depression Screening Interpretation: Negative Depression Screening Done: Yes 70537 - PHQ-9 Billing: Yes Source: Developed by Drs. Nitish Sanches, Shira Cardenas, Alvin Cavazos and colleagues, with an educational wilfredo from [employer]. Thrive Questionnaire Date Thrive assessed: 02/27/25 I am a: Patient What is your living situation today?: I have a steady place to live Within the past 12 months, did the food you bought not last and you didn't have the money to get more?: I choose not to answer this question Within the past 12 months, did you worry whether your food would run out before you got money to buy more?: I choose not to answer this question Do you have trouble paying for medicines?: No Do you have trouble getting transportation to medical appointments?: No Do you have trouble paying your heating and electricity bill?: No Do you have trouble taking care of your child, family member or friend?: No Do you have trouble with day-to-day activities such as bathing, preparing meals, shopping, managing finances, etc.?: No Are you currently unemployed and looking for a job?: No Are you interested in more education?: No Please select the resources that you would like help with: None Currently or been in a relationship where the following occur: I choose not to answer THRIVE Score: 0 AUDIT C Alcohol Use Questionnaire (AUDIT-C) 1. How often do you have a drink containing alcohol?: Never 3. How often do you have six or more drinks on one occasion?: Never Total Score: 0 FELICIA-7 AMB Questionnaire FELICIA-7 Date FELICIA - 7 assessed: 02/27/25 Feeling nervous, anxious, or on edge: 0 = Not at all Not being able to stop or control worryin = Not at all Worrying too much about different things: 0 = Not at all Trouble relaxin = Not at all Being so restless that it is hard to sit still: 0 = Not at all Becoming easily annoyed or irritable: 0 = Not at all Feeling afraid as if something awful might happen: 0 = Not at all Total FELICIA-7 score (0-4 normal; 5-9 mild; 10-14 moderate; 15-21 severe): 0 Source: Developed by Drs. Nitish Sanches, Shira Cardenas, Alvin Cavazos and colleagues, with an educational wilfredo from [employer]. FELICIA-7 Assessment Billing FELICIA-7 Assessment Tool: FELICIA-7 Assessment 90377 Review of Systems Const Denies headache(s) Eyes Denies loss of vision ENT Denies vertigo, Denies dizziness, Denies headache(s) and Denies sore throat Card Denies chest pain, Denies leg edema and Denies lightheadedness Resp Denies cough, Denies hemoptysis and Denies wheezing GI Denies abdominal pain, Denies melena, Denies constipation, Denies diarrhea and Denies vomiting Denies dysuria, Denies urinary frequency and Denies urinary urgency Musc Denies arthralgias, Denies joint swelling, Denies numbness and Denies tingling Neuro Denies Abnormal speech present, Denies behavioral changes, Denies vertigo, Denies dizziness, Denies headache(s), Denies loss of vision, Denies memory loss, Denies numbness and Denies tingling Psych Denies anxiety, Denies behavioral changes, Denies depression, Denies memory loss and Denies panic attacks Willy/Lymph Denies easy bleeding and Denies easy bruising Aller/Immun Denies wheezing Physical exam (Primary Care) Vital Signs: Last Vital Signs Temp 97.3 F 02/27/25 11:43 Pulse 70 02/27/25 11:43 BP 110/72 02/27/25 11:43 Pulse Ox 98 02/27/25 11:43 Oxygen Delivery Method Room Air 02/27/25 11:43 BMI result Body Mass Index 22.8 Tobacco/Smoking Status: Tobacco use Status Tobacco use date assessed 09/24/24 02/27/25 11:39 Patient Tobacco Use Status Never used Tobacco 02/27/25 11:39 e-Cigarette/Vaping Use Never Used 02/27/25 11:39 PHQ-9: PHQ-9 Score PHQ-9: Total score 0 02/27/25 12:24 Depression Screening Interpretation: Negative Thrive Assessment: Date of Thrive Assessment Date Thrive assessed 02/27/25 02/27/25 11:39 Currently or been in a relationship where the following occur: I choose not to answer Const General: healthy appearing, no acute distress, alert and awake Nutritional Appearance: well nourished Orientation/consciousness: oriented to person, oriented to place and oriented to time HENMT Ears: TM's normal bilaterally General nose exam: Normal nasal mucous membranes and turbinates present Eyes Conjunctivae: conjunctivae normal Sclerae: sclerae normal Pupils: Equal, round and reactive pupils present Neck Neck: Yes no lymphadenopathy and Yes no JVD Thyroid: Thyroid normal Carotids: no bruits Resp Effort & Inspection: normal respiratory effort and not tachypneic Auscultation: no crackles, no rales, no rhonchi and no wheezes Cardio Rate: regular rate Rhythm: regular rhythm Heart sounds: no murmurs and normal S1 and S2 GI Palpation (GI): Soft to palpation, nontender, no hepatomegaly and no splenomegaly Auscultation: normal bowel sounds Abdomen image: 1. SMALL PALPABLE LUMP NOTED SUPERIOR TO THE UMBILICUS. LUMP MORE WELL-DEFINED WHEN STANDING IN A UPRIGHT POSITION. Skin General skin exam: no rashes or lesions noted and dry skin Neuro General: oriented to person, oriented to place and oriented to time Cranial nerves: Yes Equal, round and reactive pupils present Speech: No Abnormal speech present Gait exam (Neuro): Normal gait present Motor exam (neuro): no tremor noted Extrem Right upper extremity: full ROM Left upper extremity: full ROM Right lower extremity: full ROM; no edema Left lower extremity: full ROM; no edema Psych Mental Status: mental status grossly normal Speech and movement: Normal speech and movement present Affect: normal affect Attitude: cooperative Thought process: Normal thought process present Coding Level of Care Code Est Pt Level 3 (89862) Diagnoses Hernia of abdominal wall K43.9 Additional Codes FELICIA-7 Assessment Billing - FELICIA-7 Assessment Tool: FELICIA-7 Assessment 19815 ([id number]) PHQ-9 - 02286 - PHQ-9 Billing: Yes ([id number]) Assessment & Plan Assessment & Plan (1) Hernia of abdominal wall: Code(s): K43.9 - Ventral hernia without obstruction or gangrene Category: Medical Plan: A CT scan has been suggested to evaluate the hernia. Further consultation with a general surgeon may be warranted based on the scan results. Orders: Orders CT abdomen wo IV con Today K43.9 - Ventral hernia without obstruction or gangrene
[2025-02-27 11:43] VITALS: BP 110/72; PULSE 70; TEMP 36.3; O2SAT 98; BMI 22.8
--- OUTSIDE RECORDS SUMMARY | 2025-02-27 12:38 | XMS_ITS | Data Portability ---
Author Organization [facility], [address] Address [address] [place] [address] Care Team Providers Care Ditch Inspector Name Role Phone [facility] Primary Care Provider Assessment No assessment recorded. Plan of Treatment Reminders Order Date Submit Date Provider Last Modified By Organization Details Last Modified Time Details Appointments None recorded. Lab None recorded. Referral None recorded. Procedures None recorded. Surgeries None recorded. Imaging None recorded. Medication Orders ketorolac 60 mg/2 mL intramuscul ar solution 2022 023 [facility]/Pharmacy #[id number], [address] [place] [address], [address], 14:49:43 diclofenac sodium 75 mg tablet,mauricio yed release 2022 023 [facility]/Pharmacy #[id number], [address] [place] [address], [address], 14:46:26 cyclobenzap rine 10 mg tablet 2022 023 [facility]/Pharmacy #[id number], [address] [place] [address], [address], 14:46:26 Patient TargetsNo targets recorded. Patient Instructions Encounter Date Encounter Id Patient Instructions Last Modified By Organization Details Last Modified Time 12/09/2022 [id number] getting back to normal after low back pain: care instructions [id number] Not available 12/09/2022 14:46:06 Reason for Referral None Reported. Problems Name Problem SNOMED Code Status Onset Date Resolution Date Notes Provider Name and Address Organization Details Recorded Time Psoriasis 4438812 Active 023 AM[facility]DA [facility]augherty [facility] - [facility] [...] Updated DateTime 3 170.18 cm 23.5 kg/m2 67181.8 6 g 99 % 99 % 59 /min 19 /min 97.3 [degF] 132 mm[Hg] 78 mm[Hg] AMANDA GARRETT - [facility] 3 13:08:25 Social History Question Answer Notes LastModified by Organizat ion Details LastModified Time Tobacco Smoking Status Never Smoker AMANDA daugherty PA - [facility] 12/09/2022 13:06:53 Have You Recently Traveled Abroad? No Information not available 12/09/2022 Sex: Unknown Functional Status Question Answer Note LastModified by Organizat ion Details LastModified Time Do you use any illicit or recreational drugs? No Information not available 12/09/2022 Do you or have you ever used any other forms of tobacco or nicotine? No Information not available 12/09/2022 What is your level of alcohol consumption? None Information not available 12/09/2022 Mental Status None recorded. Family History Nothing Reported. Medical History No medical history recorded. Immunizations Vaccine Type Date Status Note Provider Nam e and Address Organization Details Recorded Time COVID-19, mRNA, LNP-S, PF, 100 mcg/0.5mL dose or 50 mcg/0.25mL dose 10/14/2021 completed AMANDA DEPINTO null, [facility] - [facility] [...] SNOMED-CT Code Diagnosis ICD10 Code Diagnosis Note [id number] [address] [place] [address] 05/05/2016 16:32:21 05/05/2016 17:34:53 [id number] [address] [place] [address] 10/22/2017 12:01:29 10/22/2017 13:35:06 [id number] FRANDY GALVAN MD [address] [place] [address] 12/09/2022 10:01:10 12/09/2022 14:54:21 Spasm of muscle of lower back 0607966366 3491083 M62.830 MUSCULOSKE LETAL PAIN can be managed [...] [facility] doctor [facility]. If your symptoms become [...] ID Hawkins Member ID Guarantor Name 03/03/[address] [place] [address] [id number] Valdez Ball [id number] Valdez Ball
== END 2025-02-27 12:30 | disposition home or self-care (01) ==
LOC: HO.HMCH 11:21
PROVIDERS: PCP Physician Assistant; Visit Provider Physician Assistant
DX: K43.9 Ventral hernia without obstruction or gangrene (principal)

== ENCOUNTER → 2025-02-27 11:21 | Outpatient (BNVA) | payer OTHER, SELFPAY | PROVIDERS: PCP Physician Assistant; Visit Provider Physician Assistant | DX: K43.9 Ventral hernia without obstruction or gangrene (principal); E03.9 Hypothyroidism, unspecified; Z79.899 Other long term (current) drug therapy; Z13.30 Encounter for screening examination for mental health and behavioral disorders, unspecified | CPT/HCPCS: 96127 ==

== ENCOUNTER 2025-10-09 08:19 | Outpatient (AMB) | payer OTHER, SELFPAY ==
--- OUTSIDE RECORDS SUMMARY | 2025-10-09 08:24 | XMS_ITS | Data Portability ---
Author Organization [facility], [address] Address [address] [place] [address] Care Team Providers Care Sas Analyst Name Role Phone [facility] Primary Care Provider Assessment No assessment recorded. Plan of Treatment Reminders Order Date Submit Date Provider Last Modified By Organization Details Last Modified Time Details Appointments None recorded. Lab None recorded. Referral None recorded. Procedures None recorded. Surgeries None recorded. Imaging None recorded. Medication Orders ketorolac 60 mg/2 mL intramuscul ar solution 2022 023 [facility]/Pharmacy #2339, [address], [place], [address], 14:49:43 diclofenac sodium 75 mg tablet,mauricio yed release 2022 023 [facility]/Pharmacy #2339, [address], [place], [address], 14:46:26 cyclobenzap rine 10 mg tablet 2022 023 [facility]/Pharmacy #2339, [address], [place], [address], 14:46:26 Patient TargetsNo targets recorded. Patient Instructions Encounter Date Encounter Id Patient Instructions Last Modified By Organization Details Last Modified Time 12/09/2022 [id number] getting back to normal after low back pain: care instructions [id number] Not available 12/09/2022 14:46:06 Reason for Referral None Reported. Problems Name Problem SNOMED Code Status Onset Date Resolution Date Notes Provider Name and Address Organization Details Recorded Time Psoriasis 7782568 Active 023 [facility]augherty [facility] - [facility] [...] numeric rating [Score] - Reported Oxygen saturation Heart rate Respiratory rate Body temperature Systolic And Diastolic Provider Name and Address Organization Details Last Updated DateTime 3 170.18 cm 23.5 kg/m2 01663.8 6 g 5 99 % 59 /min 19 /min 97.3 [degF] 132/78 mm[Hg] AMANDA ALANIZ PA - [facility] [...] or 50 mcg/0.25mL dose 10/14/2021 completed AMANDA daugherty PA - [facility] 12/09/2022 13:06:10 COVID-19, mRNA, LNP-S, PF, 100 mcg/0.5mL dose or 50 mcg/0.25mL dose 09/16/2021 completed AMANDA CHENGO willow PA - [facility] 12/09/2022 13:06:10 Tdap 10/10/2014 completed AMANDA CHENGO willow PA - [facility] 12/09/2022 13:06:10 Past Encounters Encounter ID Performer Location Encounter Start Date Encounter Closed Date Diagnosis/Indication Diagnosis SNOMED-CT Code Diagnosis ICD10 Code Diagnosis IMO Codes Diagnosis Note [id number] [address] [place] [address] 05/05/2016 16:32:21 05/05/2016 17:34:53 [id number] [address] [place] [address] 10/22/2017 12:01:29 10/22/2017 13:35:06 [id number] FRANDY GALVAN MD [address] [place] [address] 12/09/2022 10:01:10 12/09/2022 14:54:21 Spasm of muscle of lower back [id number] [id number] M62.830 MUSCULOSKE LETAL PAIN can be managed quite effectivel y with over the counter medication s and home treatments . When suffering from sprains, strains, contusions and other types of very painful but non-danger ous musculoske letal pain try the followin . ACETAMINOP HEN 1,000 mg or 6 hours is needed for pain while taking the Diclofenac . 2 . Heat - Apply moist heat to affected area 3 times a day for 20 minutes at a time. Do not sleep with a heating pad as it may cause skin lerma. 3 . Topical medication such as Stop Pain Roll-On fe els good to rub on painful areas. Do not apply over broken skin. 4 . Many musculoske letal injuries can benefit from gentle stretching or strengthen ing exercises. 5. Wear a back support brace while working to take the strain of of you back. * If pain does not improve please see your doctor or return to [facility] within one week. If your symptoms become severe or uncontroll ed or if you develop new concerning symptoms please go to the Emergency Department for evaluation and pain control. Health Concerns Section Related Observation LastModified by Organization Detai ls LastModified Time None Recorded Concern Status LastModified by Organization Details LastModified Time None Recorded Advance Directives Directive None Recorded Payers Insurance Date Sequence Insurance Name Policy Number Policy Hawkins Covered Member ID Hawkins Member ID Guarantor Name 03/03/[address] [place] [address] [id number] Valdez Ball [id number] Valdez Ball Notes Date Note Type Note Provider Name and Address Organization Details Recorded Time 12/09/2022 text/html Back Pain/Injury UCReported by Patient FRANDY GALVAN MD [address] [place], [address], [place] - [facility] 12/09/2022 14:52:15
--- NOTE | 2025-10-09 08:25 | MHC.PC.OV ---
Vital Signs 10/09/25 08:26 Height 5 ft 7 in Weight 135 lb 6 oz BMI 21.2 BP 138/68 Blood Pressure Location Lt brachial Position Sitting Respiration 18 Pulse 68 Pulse Source Pulse Oximeter Temp Source Temporal Artery Scan Pulse Oximetry (%) 97 Oxygen Delivery Method Room Air Intake Visit Reasons: pe Implementation Analyst Required: No Accompanied by: Self / Same As Patient Allergies No Known Allergies Allergy (Verified 10/09/25 08:26) Medication List - Last Reconciled 10/09/25 by Lachelle Guzmán MD clobetasol 0.05% 1 appl topical BID hydrocortisone 2.5% topical levothyroxine 25 mcg PO DAILY omeprazole 20 mg PO DAILY 30 days secukinumab (Cosentyx UnoReady Pen) mg subcut Tobacco use date assessed: 10/09/25 Dental Screening Dental Screen Date: 10/09/25 Did you have a dental visit in the last 12 months?: Yes Did you have a dental problem in the last 6 months where you did not have access to dental care?: No Was dental information given to patient?: Patient has dentist HPI HPI Comments History of Present Illness Details The patient is a 45 year old male with PMH of psoriasis, GERD, Hypothyroidism, presenting for an annual physical. He has a history of an abdominal hernia, which was evaluated in February. There was a plan for CT scan but if got deferred by the patient as the hernia is not bothering him anymore. 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 He also uses clobetasol and hydrocortisone creams. The patient has a history of acid reflux and has stopped taking his prescribed omeprazole due to a perceived conflict with his thyroid medication. His symptoms are intermittent, particularly when bending over at work, and he currently manages them with Tums, which he finds helpful. For hypothyroidism, he takes levothyroxine 25 mcg every morning. His last TSH level was 2.07. He reports significant unintentional weight loss, going from 148 lbs to 135 lbs over the past year. He attributes this to a new high-intensity workout regimen, exercising 6 days a week, combined with inadequate nutritional intake. He has cut out fast food but admits to not cooking for himself and eating inadequately. The patient has history of AUD which was in remission. He unfortunately relapsed recently with heavy drinking on his proposal day. This caused him significant stress over the past few months as he broke a promise to his fianc?e not to drink, which occurred on the day he proposed to her. This has caused a strain in their relationship, and he expresses significant guilt and difficulty forgiving himself. He admits that once he starts drinking, he cannot stop. He has no family history of colon cancer and denies smoking. He has reports he has not received any vaccinations in the last five years. [facility] Medical History Cervical radiculitis Surgical History No pertinent past surgical history Family History Father Diabetes Heart attack Substance use disorder Mother Hypertension Son Allergies Social History Housing: House Alcohol intake: former Year quit: 2022 Patient Tobacco Use Status: Never used Tobacco e-Cigarette/Vaping Use: Never Used Second Hand Smoke Exposure: No service: No Current occupational status: employed Current occupation: [employer] Current occupational exposures/hazards: No Cognitive needs: No Hearing needs: No Vision needs: No Questionnaire Thrive Questionnaire Date Thrive assessed: 10/09/25 What is your living situation today?: I have a steady place to live Within the past 12 months, did the food you bought not last and you didn't have the money to get more?: I choose not to answer this question Within the past 12 months, did you worry whether your food would run out before you got money to buy more?: I choose not to answer this question Do you have trouble paying for medicines?: No Do you have trouble getting transportation to medical appointments?: No Do you have trouble paying your heating and electricity bill?: No Do you have trouble taking care of your child, family member or friend?: No Do you have trouble with day-to-day activities such as bathing, preparing meals, shopping, managing finances, etc.?: No Are you currently unemployed and looking for a job?: No Are you interested in more education?: No Currently or been in a relationship where the following occur: I choose not to answer THRIVE Score: 0 AUDIT C Alcohol Use Questionnaire (AUDIT-C) 3. How often do you have six or more drinks on one occasion?: Never Total Score: 0 FELICIA-7 AMB Questionnaire FELICIA-7 Date FELICIA - 7 assessed: 02/27/25 Source: Developed by Drs. Nitish Sanches, Shira Cardenas, Alvin Cavazos and colleagues, with an educational wilfredo from [facility]. Review of Systems Const Details: As per HPI. Physical exam (Primary Care) Vital Signs: Last Vital Signs Pulse 68 10/09/25 08:26 Resp 18 10/09/25 08:26 BP 138/68 10/09/25 08:26 Pulse Ox 97 10/09/25 08:26 Oxygen Delivery Method Room Air 10/09/25 08:26 BMI result Body Mass Index 21.2 Tobacco/Smoking Status: Tobacco use Status Tobacco use date assessed 10/09/25 10/09/25 08:32 Patient Tobacco Use Status Never used Tobacco 10/09/25 08:32 e-Cigarette/Vaping Use Never Used 10/09/25 08:32 Thrive Assessment: Date of Thrive Assessment Date Thrive assessed 10/09/25 10/09/25 08:32 Currently or been in a relationship where the following occur: I choose not to answer Const Other: Pertinent findings are in BOLD GENERAL APPEARANCE NAD, activity normal for age, well developed/ well nourished, no cyanosis, pallor, or diaphoresis. EYES lids/conjunctiva normal. EARS/NOSE/THROAT Mucous membranes moist, nares normal, lips/teeth normal uvula midline without oral pharyngeal erythema, exudate or swelling TMs normal bilaterally. No lymphangitis/lymphedema. HEAD/NECK normocephalic atraumatic, no facial trauma, neck is supple. RESPIRATORY respiratory effort normal, speaks in full sentences, no tripod position, no accessory muscle use. Lungs clear to auscultation without rhonchi, wheezes, rales CARDIAC Regular rate and rhythm, no edema. ABDOMINAL Soft, ND/NT. No evidence of fluid wave. No pulsatile masses on exam, rebound tenderness, Soto sign or pain over Mcburney's point. MUSCLES/EXTREMITIES No abnormal range of motion, no swelling. SKIN Warm, pink and dry. No rashes, dermatoses, petechiae or lesions. NEUROLOGICAL Speech is clear and appropriate. Normal level of consciousness. Gait and coordination are normal. 5/5 strength in all extremities. PSYCH Normal mood and affect. Judgement/competence is appropriate Immunizations Boostrix Tdap 2.5 Lf unit-8 mcg-5 Lf/0.5 mL intramuscular syringe Performing Provider: Lachelle Guzmán MD [facility] Administered by: Kristy Subramanian CMA on 10/09/25 08:55 Dose Route Admin Location Dispensed Lot Number Expiration Date NDC Coal Cutting Machine Operator 0.5 mL IM Right Deltoid 0.5 mL [id number] 03/21/28 [id number] Digital Guardian Total Dispensed Waste 0.5 mL 0 % VIS Given Date VIS Provided VIS Publication Date 10/09/25 Single Vaccine 21 Eligibility Eligibility Date Funding Source Not [facility] Eligible 10/09/25 Private Coding Level of Care Code Est Pt Prev Care 40-64y([id number]) Diagnoses Healthcare maintenance Z00.00 Psoriasis L40.9 Hypothyroidism, unspecified type E03.9 Hypothyroidism type: unspecified Gastroesophageal reflux disease without esophagitis K21.9 Esophagitis presence: without esophagitis Opioid dependence in remission F11.21 Substance use status: in remission History of alcohol use disorder Z87.898 Weight loss R63.4 Time Spent (min) 30 Assessment & Plan Assessment & Plan (1) Healthcare maintenance: Code(s): Z00.00 - Encounter for general adult medical examination without abnormal findings Category: Medical Plan: CBC, CMP, Lipid panel, A1C, TSH w T4, vit D. Ordered. Shingles 2 doses when >50 yo. At 50. COVID: two doses. Declined. Pneumococcal: >50 yo. 18-49 with CKD, lung disease, weakened immune system, Heart disease, DM, cochlear implant. At 50. Flu vaccine: Declined. Tdap: every 10 years. Due this year. Ordered today. Colonoscopy: 45-75. At 45. AAA: 65 -75. NI[address] CT lun - 80. NI. PSA: 50 -70 every two years. At 50. HIV: ordered. HCV: ordered. (2) Psoriasis: Code(s): L40.9 - Psoriasis, unspecified Category: Medical Plan: - The patient's psoriasis is stable and well-controlled with his current regimen. - He will continue his monthly injection and the use of clobetasol and hydrocortisone creams as prescribed. - He will continue to follow up with his dairy machine operator farmworker. (3) Hypothyroidism: Code(s): E03.9 - Hypothyroidism, unspecified Category: Medical Qualifiers: Hypothyroidism type: unspecified Qualified Code(s): E03.9 - Hypothyroidism, unspecified Plan: - The patient's hypothyroidism is clinically stable. His last TSH was 2.07. - He will continue taking levothyroxine 25 mcg daily. - Thyroid function tests will be repeated as part of routine labs. (4) GERD (gastroesophageal reflux disease): Code(s): K21.9 - Gastro-esophageal reflux disease without esophagitis Category: Medical Qualifiers: Esophagitis presence: without esophagitis Qualified Code(s): K21.9 - Gastro-esophageal reflux disease without esophagitis Plan: - The patient reports intermittent symptoms, which he manages effectively with Tums as needed. - He has discontinued omeprazole. - No changes to management are planned at this time. (5) Opiate dependence: Code(s): F11.20 - Opioid dependence, uncomplicated Category: Medical Qualifiers: Substance use status: in remission Qualified Code(s): F11.21 - Opioid dependence, in remission Plan: In remission. (6) History of alcohol use disorder: Code(s): Z87.898 - Personal history of other specified conditions Category: Medical Plan: - The patient reports significant distress and guilt following a recent relapse of alcohol use, where he drank heavily after promising his fianc?e he would abstain. - He notes a pattern of being unable to stop once he starts drinking. - Provided supportive counseling and reassurance, encouraging patience as he and his fianc?e navigate this difficulty. (7) Weight loss: Code(s): R63.4 - Abnormal weight loss Category: Medical Plan: - The patient has lost approximately 13 pounds in the last year, which he attributes to high-intensity exercise and inadequate caloric intake. - He was counseled on the importance of increasing his food consumption to match his activity level, with suggestions to try pre-cooked, high-protein meals. - He declined a referral to a screw supervisor, stating he understands the need to be more disciplined with his diet. Plan I informed the patient that I am ordering a set of general labs to check his overall health, including an A1c, lipid panel, CBC, CMP, and thyroid levels. I also explained that I am ordering a one-time screening for HIV and Hepatitis C, which he has not had before, and he consented to the tests. We discussed his significant weight loss, and I explained that it is likely due to the combination of high-intensity workouts and insufficient caloric intake. I recommended strategies to increase his food consumption, such as pre-cooked meals. He declined a formal nutrition consult, stating he knows he needs to be more disciplined. We had a detailed conversation about the personal stress he is experiencing due to a relapse with alcohol use, which has strained his relationship with his fianc?e. I provided counseling and reassurance, advising him to give himself and his fianc?e time to process the event. I confirmed he was due for a tetanus vaccination and recommended a flu shot, both of which he agreed to and received during the visit. We agreed to schedule a follow-up with his primary provider in six months and his next annual physical in one year. Orders: Orders TDaP Immunization Today Z23 - Encounter for immunization Complete Blood Count no Diff Today Z00.00 - Encounter for general adult medical examination without abnormal findings Comprehensive Met. Panel Today Z00.00 - Encounter for general adult medical examination without abnormal findings HIV Ab/Ag Today Z00.00 - Encounter for general adult medical examination without abnormal findings Hepatitis C Antibody Reflex Today Z00.00 - Encounter for general adult medical examination without abnormal findings Lipid Panel Today Z00.00 - Encounter for general adult medical examination without abnormal findings TSH reflex Free T4 Today Z00.00 - Encounter for general adult medical examination without abnormal findings Hemoglobin A1c Today Z00.00 - Encounter for general adult medical examination without abnormal findings Medications: Discontinued omeprazole Discontinued Reason: Patient no longer taking 20 mg PO DAILY 30 days 30 caps 1RF K21.9 - Gastro-esophageal reflux disease without esophagitis
[2025-10-09 08:26] VITALS: BP 138/68; PULSE 68; RESP 18; O2SAT 97; BMI 21.2
== END 2025-10-09 08:58 | disposition home or self-care (01) ==
LOC: HO.HMCH 08:20
PROVIDERS: PCP Physician Assistant; Visit Provider Internal Medicine
DX: Z00.00 Encounter for general adult medical examination without abnormal findings (principal); K21.9 Gastro-esophageal reflux disease without esophagitis; F11.21 Opioid dependence, in remission; R63.4 Abnormal weight loss; Z23 Encounter for immunization

== ENCOUNTER → 2025-10-09 08:19 | Outpatient (BNVA) | payer OTHER, SELFPAY | PROVIDERS: PCP Physician Assistant; Visit Provider Internal Medicine | DX: Z23 Encounter for immunization (principal) | CPT/HCPCS: 90471; 90715 ==